=== PATIENT | female | born 1985 | race Caucasian/White ===

== ENCOUNTER → 2019-12-21 13:50 | Outpatient (BNVA) | payer MEDICAID, SELFPAY | PROVIDERS: Family Provider Nurse Practitioner; PCP Nurse Practitioner; Visit Provider Nurse Practitioner Women's Health | DX: O09.899 Supervision of other high risk pregnancies, unspecified trimester (principal); Z3A.00 Weeks of gestation of pregnancy not specified | CPT/HCPCS: 80053; 80307; 84315; 85027; 86592; 86762; 86803; 86850; 86900; 87340; 87806 ==

== ENCOUNTER → 2020-01-10 14:39 | Outpatient (BNVA) | payer MEDICAID, SELFPAY | PROVIDERS: Family Provider Nurse Practitioner; PCP Nurse Practitioner; Visit Provider Obstetrics & Gynecology | DX: O09.899 Supervision of other high risk pregnancies, unspecified trimester (principal); Z12.4 Encounter for screening for malignant neoplasm of cervix; Z86.718 Personal history of other venous thrombosis and embolism; Z3A.00 Weeks of gestation of pregnancy not specified | CPT/HCPCS: 81000; 81241; 85210; 85300; 87491; 87591; 88175 ==

== ENCOUNTER → 2020-02-16 08:06 | Outpatient (BNVA) | payer MEDICAID, SELFPAY | PROVIDERS: Family Provider Nurse Practitioner; PCP Nurse Practitioner; Visit Provider Obstetrics & Gynecology | DX: Z34.92 Encounter for supervision of normal pregnancy, unspecified, second trimester (principal); Z3A.19 19 weeks gestation of pregnancy | CPT/HCPCS: 76805 ==

== ENCOUNTER → 2020-04-12 10:07 | Outpatient (BNVA) | payer MEDICAID, SELFPAY | PROVIDERS: Family Provider Nurse Practitioner; PCP Nurse Practitioner; Visit Provider Obstetrics & Gynecology | DX: O09.899 Supervision of other high risk pregnancies, unspecified trimester (principal); Z3A.00 Weeks of gestation of pregnancy not specified | CPT/HCPCS: 82950; 84315; 85027 ==

== ENCOUNTER → 2020-06-10 08:20 | Outpatient (BNVA) | payer MEDICAID, SELFPAY | PROVIDERS: Family Provider Nurse Practitioner; PCP Nurse Practitioner; Visit Provider Obstetrics & Gynecology | DX: O09.899 Supervision of other high risk pregnancies, unspecified trimester (principal); Z86.718 Personal history of other venous thrombosis and embolism; Z3A.00 Weeks of gestation of pregnancy not specified | CPT/HCPCS: 84315; 87081 ==

== ENCOUNTER 2020-06-24 14:19 | Inpatient (IN) | payer MEDICAID, SELFPAY ==
[2020-06-24] VITALS (98 sets, daily range): BP systolic 98–139; BP diastolic 55–88; PULSE 102–150; RESP 18; TEMP 36.8; O2SAT 93–100; BMI 32.4
[2020-06-24] MEDS: lactated ringers 1,000 ML 999 ML IV ×2 (15:32→19:54)
[2020-06-24 15:43] LABS: Basophils % 0.3 %; Eosinophils # 0.1 10^3/uL (0.0-0.8); Eosinophils % 1.5 %; Hematocrit 35.7 % (37.0-47.0); Lymphocytes # 1.8 10^3/uL (0.8-4.8); Lymphocytes % 19.5 %; Mean Corpuscular HGB Conc 33.6 g/dL (30.0-36.0); Mean Corpuscular Hemoglobin 31.1 pg (28.0-34.0); Mean Corpuscular Volume 92.5 fL (81-99); Mean Platelet Volume 12.5 fL (7.4-10.4); Monocytes # 0.5 10^3/uL (0.2-0.9); Monocytes % 5.6 %; Neutrophils # 6.75 10^3/uL (1.8-7.7); Neutrophils % 72.8 %; Nucleated Red Blood Cells % 0 %; Platelet Count 192 10^3/cmm (130-400); Red Blood Count 3.86 10^6/uL (4.1-5.3); White Blood Count 9.3 10^3/uL (4.0-10.0)
--- NOTE | 2020-06-24 18:57 | P.PN_ITS ---
Subjective Subjective: Interval history: Subjective- Ms. Martinez is a 35-year-old 3 para 2-0-0-2 at 38 weeks and 3 days who was sent to labor and delivery from a routine office visit. She was saw Dr. Nails for scheduled obstetrical visit and Doptone showed heart rate to be in the 70s. She was sent over immediately for further evaluation and possible delivery. History was significant for ovarian cancer requiring an exlaparotomy with right salpingo-oophorectomy and history of a DVT in 2014 for which she is taking Lovenox as well as 2 previous C-sections. She does not want to be anymore and desired total salpingectomy for sterilization. -She states that she is feeling fine and is no longer anxious and just wants to make sure baby is fine. She has questions about . She did receive a dose of 40 mg of Lovenox this morning subcutaneously as she has been unable to fill her heparin prescription and so was continued herself on Lovenox. Has not had Covid testing done as yet. Objective- Blood pressure-104/64 mmHg Pulse-110 beats per minute Temperature-98.2 Fahrenheit O2 saturation-97 on room air Abdomen-gravid, nontender, well-healed scar from previous /laparotomy noted Sterile vaginal exam-closed thick and high EFM-135, moderate variability, accelerations present, 1 late deceleration in 2- 1/2 hours after contraction Broughton-irritability with only 1 contraction every hour or so Assessment: 35-year-old 3 para 2-0-0-2 at 38 weeks and 3 days -Category 2 tracing that has recovered and is now category 1 -History of DVT currently on Lovenox Previous delivery x2 desiring repeat Multiparity desiring sterilization with total salpingectomy--Medicaid consent signed on 04/12/2020 Plan: Discussed with Ms. Martinez and her partner that although tracing is category 1 whenever she has an occasional contraction and is followed by deceleration. Given this I would recommend delivery. -Since it is overall a category 1 tracing and since she has received Lovenox recently I would like to hold off on surgery if possible till morning-24 hours after her last dose of Lovenox. This way we can try to ensure regional anesthesia and decrease the risk of bleeding. She understands that if anything changes overnight she may need to have surgery beforehand. -Since she has not had Covid testing we will do this today however it is unlikely to be back before tomorrow and so surgery will have to be done in the main OR-Main OR -[facility] notified -Patient understand that Dr. Armstrong will be doing the surgery and we will plan for repeat total salpingectomy for sterilization-consents were signed today-06/24/2020 -Continuous EFM and tocometry overnight and she understands that if tracing gets any worse we will need to perform surgery overnight. -As long as tracing remains category 1 patient can have ice chips but otherwise n.p.o. after midnight Vitals/I&O/Wt Last Vital Signs Temp 98.2 F 06/24/20 14:45 Pulse 120 H 06/24/20 18:47 Resp 18 06/24/20 14:45 BP 104/64 06/24/20 18:47 Pulse Ox 97 06/24/20 15:26 Weight last 48 hrs Weight 183 lb Data : 06/24/20 15:00 Attestations Medical Necessity Statement*: Patient will need to stay to at least 2-3 midn [facility] for surgery and associated recovery Coding Level of Care Code Acute Pet Care Attendant for Chg Adrienne
[2020-06-24] MEDS: terbutaline 1 mg/mL INJ 0.25 MG SUBCUT (19:53)
[2020-06-25] VITALS (104 sets, daily range): BP systolic 91–129; BP diastolic 52–80; PULSE 83–121; RESP 15–18; TEMP 36.4–37.3; O2SAT 94–100
[2020-06-25] MEDS: lactated ringers 1,000 ML 125 ML IV (00:36)
[2020-06-25] MEDS: lactated ringers 1,000 ML 999 ML IV (05:45)
--- NOTE | 2020-06-25 06:08 | PC.NURSE ---
OR paradichlorobenzene tender at nurses station, report given and bleed medication box given to OR paradichlorobenzene tender BRANDON Manzo.
[2020-06-25] MEDS: metoclopramide 5 mg/mL SDV 2 mL 10 MG IVP (06:16)
[2020-06-25] MEDS: famotidine 20 mg/2 mL INJ IVP (06:16)
[2020-06-25] MEDS: citric acid-sodium citrate 30 mL UDC PO (06:17)
--- NOTE | 2020-06-25 06:24 | P.ANESASSM_ITS ---
Pre-Anesthetic Assessment Pre-Anesthetic Assessment: Height/Weight: Height 1.6 m Weight 83.007 kg Temp Pulse Resp BP Pulse Ox 98.2 F 109 H 18 117/75 99 06/24/20 14:45 06/25/20 06:10 06/24/20 14:45 06/25/20 06:10 06/25/20 06:00 Proposed Procedure: Operation Date: 06/25/20 07:00 Proposed Procedures p Section(Not Applicable) - Lesli Ignacio MD Was Beta Jennifer taken within 24 hours: N/A Last intake: Intake Last Liquid Date 06/24/20 Last Liquid Time 20:30 Last Solid Date 06/24/20 Last Solid Time 11:00 Social: Social History: No alcohol and No tobacco Exam: Pre-Anes Outpt Exam: alert, oriented x 3, clear to auscultation bilaterally and regular rate & rhythm Airway: Submandibular: WNL Cervical ROM: WNL MP: 2 Dentition: Full CV/HEM: CV/HEM: DVT (last dose lovenox >12hrs) Anesthetic Plan: ASA status: 2 Other: SAB Risk of > 500 ml blood loss (7ml/kg in children): Yes, adequate IV access and fluids planned Meds/Allergies Current Medications: Current Medications Generic Name Dose Route Start Last Admin Trade Name Freq PRN Reason Stop Dose Admin Lactated Ringer's 1,000 mls @ 125 m ls/hr 06/24/20 18:30 06/25/20 05:38 Lactated Ringers IV Not Given .Q8H STIVEN Lactated Ringer's 1,000 mls @ 125 m ls/hr 06/24/20 18:45 06/25/20 05:38 Lactated Ringers IV Not Given .Q8H STIVEN PFSH Anesthesia PFSH: Medical History H/O ovarian cancer (~2003) Had RSO with cancer identified. Treated surgically, followed by radiation and chemotherapy. History of DVT (deep vein thrombosis) (~2014) Left leg. States was told was due to her control Surgical History Hx of removal of ovary (~2003) Laparotomy with RSO for cancer. Performed by Dr. Anguiano in [place], S/P primary low transverse (01/16/10) Performed by Dr. Nails at [facility] in [place], [place] S/P repeat low transverse (05/26/11) Performed by Dr. Nails at [facility] in [place], [place] Family History Mother Family history of thyroid problem Hypertension Social History Smoking and tobacco status: never smoked Alcohol intake: never Additional social history: - Tobacco use: Denies Alcohol use: Denies Drug use: Denies Female Reproductive History: : 3 Data Anesthesia CBC & Chem 7: 06/24/20 15:00 Other Labs: Laboratory Results - last 48 hr 06/24/20 06/24/20 15:00 15:00 WBC 9.3 RBC 3.86 L Hgb 12.0 Hct 35.7 L MCV 92.5 MCH 31.1 MCHC 33.6 RDW 14.0 Plt Count 192 MPV 12.5 H Neut % (Auto) 72.8 Lymph % (Auto) 19.5 Conway % (Auto) 5.6 Eos % (Auto) 1.5 Baso % (Auto) 0.3 Neut # (Auto) 6.75 Lymph # (Auto) 1.8 Conway # (Auto) 0.5 Eos # (Auto) 0.1 Baso # (Auto) 0.0 Nucleated RBC % (auto) 0 Nucleated RBCs # 0.0 Blood Type O Positive Rho(D) Type Positive Antibody Screen Negative Crossmatch See Detail Cardiac Studies: No Data to Display
--- NOTE | 2020-06-25 06:35 | W.PM.OPSUD ---
Surgery/Procedure H&P Update DATE OF PROCEDURE: June 25, 2020 DATE H&P PERFORMED: 06/24/20 H&P UPDATE INFORMATION: I have reviewed H&P completed within last 30 days, I have examined patient prior to procedure and No changes to prior documentation PREOP DIAGNOSIS: previous times 2 PRIMARY INDICATION FOR PROCEDURE: repeat with tubal ligation PLANNED PROCEDURE: Operation Date: 06/25/20 07:00 Proposed Procedures p Section(Not Applicable) - Lesli Ignacio MD
--- NOTE | 2020-06-25 07:57 | P.OP_ITS ---
Operative Report Date of procedure: June 25, 2020 Pre-op Diagnosis: previous times 2 Post-op diagnosis: same Procedure Done: repeat with left partial salpingectomy Specimens removed/disposition: parial fallopian tube Pathology: other Pathology: fallopian tube segment Surgeon: Chela Armstrong Personal Support Worker: Lesli Ignacio Anesthesia: Other (spinal) Estimated blood loss (mL): 300 IV fluids (mL): 1,500 Urine output (mL): 150 Complications: none Findings: term male in cephalic presentation. Normal uterus. absent right tube and ovary. Adhesion of left fallopian tube to adnexae Condition: stable Disposition: PACU Procedure: Patient was taken to the operating room where spinal anesthesia was administered and found to be adequate. She was prepped and draped in the normal sterile fashion in the in the supine position with a leftward tilt. A Barrios catheter was placed. An incision was made over the previous vertical incision and carried down to the underlying layer of fascia. The fascia was nicked in the midline and extended superiorly and inferiorly. The peritoneum was entered bluntly with the digit. This incision was extended superiorly and inferiorly. The Xavier O retractor was placed. A bladder flap was created. A low transverse incision was made uterus. This incision was extended superiorly and inferiorly. The bag of water emerged from the incision. This was ruptured with an Allis clamp. The head was grasped and brought through the incision. The nose and mouth were bulb suctioned. The remainder of the baby delivered atraumatically. The cord was clamped and cut and the baby was brought to the warmer. Apgars 8 at 1 minute 9 at 5 minutes. Weight on baby 6 pounds 0 ounces. The placenta was delivered by expression. It was intact. The uterine incision was closed with 0 Vicryl in a running fashion. A second imbricating layer was closed with 2-0 Monocryl in a running locked fashion. The bladder flap was closed with 2-0 Monocryl in a running fashion. Attention was turned to the tubal ligation portion. Using the LigaSure the tube was removed partially by cauterizing the broad ligament. I then came across the tube just superior to the fimbria. Embryo was unable to be removed due to a large adhesion to the pelvis that was so deep I was unable to remove it. there was excellent hemostasis. The peritoneal incision was closed with 2-0 Monocryl in a running fashion. The fascia was closed with 0 Vicryl incorporating the muscle in a running fashion. The skin was closed with 3-O strata fix. The patient tolerated the procedure well. Sponge lap and needle counts were correct x3. She was taken to the recovery room in stable condition.
--- NOTE | 2020-06-25 08:43 | ANE.PACU2 ---
Inpatient post-anesthesia follow up: Airway intact: Yes Vital signs: Temperature 97.6 F Pulse Rate 88 Respiratory Rate 17 Blood Pressure 111/77 Pulse Oximetry 98 Oxygen Delivery Me thod Room Air Oxygen Flow Rate Fraction of Inspir ed Oxygen Hydration adequate: Yes Nausea and vomiting: No Pain level: 2 Mental status: Baseline
[2020-06-25] MEDS: ketorolac 30 mg/mL INJ IVP ×3 (09:30→19:37)
[2020-06-25] MEDS: dextrose 5%-lactated ringers 1,000 ML 125 ML IV (11:59)
[2020-06-25 16:21] LABS: Coronavirus Test Green County Not Detected
[2020-06-25] MEDS: ferrous sulfate EC 325 mg Tablet PO (17:29)
[2020-06-25] MEDS: lanolin oint 7 gm 1 APPLIC TOPICAL (17:29)
[2020-06-25] MEDS: docusate sodium 100 mg Capsule PO (17:29)
[2020-06-25 20:01] LABS: Hematocrit 31.4 % (37.0-47.0); Hemoglobin 10.4 g/dL (11.5-15.3); Mean Corpuscular HGB Conc 33.1 g/dL (30.0-36.0); Mean Corpuscular Volume 93.5 fL (81-99); Mean Platelet Volume 12.1 fL (7.4-10.4); Platelet Count 166 10^3/cmm (130-400); Red Blood Count 3.36 10^6/uL (4.1-5.3); Red Cell Distribution Width 14.2 % (12.1-15.1)
[2020-06-25] MEDS: enoxaparin 40 mg/0.4 mL Syringe SUBCUT (21:08)
[2020-06-26 02:14] VITALS: BP 98/64; PULSE 104; RESP 16; TEMP 36.8
[2020-06-26 05:20] VITALS: BP 105/71; PULSE 104; RESP 16; TEMP 36.7
[2020-06-26 08:00] VITALS: BP 115/75; PULSE 104; RESP 18; TEMP 37.1
--- NOTE | 2020-06-26 09:01 | P.PN_ITS ---
Vitals/I&O/Wt Last Vital Signs Temp 98.7 F 06/26/20 08:00 Pulse 104 H 06/26/20 08:00 Resp 18 06/26/20 08:00 BP 115/75 06/26/20 08:00 Pulse Ox 97 06/25/20 22:00 06/25/20 06/26/20 06/26/20 22:59 06:59 14:59 Intake Total 1000 / 3022.917 Output Total 200 / 1600 600 / 2200 Balance -200 / 422.917 400 / 822.917 Weight last 48 hrs Weight 183 lb Physical Exam Narrative: EXAM NARRATIVE: The patient is doing very well this AM. She has been ambulating. She is tolerating a regular diet. Her catheter has been removed and she is able to urinate. Pain is well controlled. Lovenox was restarted last night. Const: COMMON NORMALS: no acute distress, average body habitus, patient oriented x3, no limitations, healthy appearing, alert and well nourished GENERAL APPEARANCE: cooperative, comfortable, well kempt and well developed ORIENTATION/CONSCIOUSNESS: Yes awake, Yes oriented to person, Yes oriented to place and Yes oriented to time Resp: COMMON NORMALS: normal respiratory effort and No retractions EFFORT & INSPECTION: Yes able to speak in complete sentences Extremity: COMMON NORMALS: no calf tenderness and no pedal edema (pedal edema present) Neuro: COMMON NORMALS: patient oriented x3 SENSORIUM/ORIENTATION: Yes alert, Yes oriented to person, Yes oriented to place and Yes oriented to time Psych: APPEARANCE: Yes well kempt Urinary Catheter Management^: Barrios: Cath Placed During This Visit: yes Reason for Continuing Indwelling Catheter: Perioperative Use in Selected Surgeries Urinary Catheter Date of Insertion: 06/25/20 Urinary Catheter Time of Insertion: 06:50 Data : 06/25/20 19:50 A&P Assessment and plan (1) Post-operative state: doing well this am Status: Acute Attestations Medical Necessity Statement*: POD #1 after Coding Level of Care Code Acute Technology Instructor for Lucia Deleon Diagnoses Post-operative state Z98.890
[2020-06-26] MEDS: docusate sodium 100 mg Capsule PO ×2 (10:03→17:57)
[2020-06-26] MEDS: prenatal vitamin Capsule 1 CAP PO (10:03)
[2020-06-26] MEDS: ibuprofen 800 mg tablet PO ×3 (10:03→21:11)
[2020-06-26 14:36] VITALS: BP 110/68; PULSE 94; RESP 18; TEMP 36.8; O2SAT 97
[2020-06-26] MEDS: enoxaparin 40 mg/0.4 mL Syringe SUBCUT (21:11)
[2020-06-26 21:58] VITALS: BP 109/76; PULSE 108; RESP 14; TEMP 36.9
[2020-06-27 04:29] VITALS: BP 106/56; PULSE 100; RESP 16; TEMP 36.7
--- NOTE | 2020-06-27 08:19 | P.DS_ITS ---
Discharge Providers Date of Admission: 06/24/20 18:30 Date of Discharge: June 27, 2020 Attending Provider at Admission: Lesli Ignacio MD Attending Provider at Discharge: Chela Armstrong MD Primary Care Provider: JANICE Cho Diagnoses at Discharge Discharge Diagnosis (1) Post-operative state: Status: Acute Reason for Visit Reason for Visit: CONTRACTIONS Hospital Course Hospital Course POD #2 The patient is doing well today. No complaints or concerns. ambulating well. tolerating a regular diet. Urinating without pain. Normal lochia. Hospital course: The patient was admitted due to decelerations during NST. The decelerations were with contractions. She had taken her lovenox and needed a repeat due to two previous . She was observed overnight and performed in the AM. She also had a left partial salpingectomy, per patient request. She did well postoperatively. She was started back on her lovenox 12 hours post op. She was ready for discharge on day #2 Physical Exam Urinary Catheter Management^: Barrios: Cath Placed During This Visit: yes, but has since been removed by the nurse Reason for Continuing Indwelling Catheter: Decision to DC Catheter Urinary Catheter Date of Insertion: 06/25/20 Urinary Catheter Time of Insertion: 06:50 Date Urinary Catheter Removed: 06/26/20 Time Urinary Catheter Discontinued: 08:00 Discharge Data Data Completed and Pending: Completed Studies During Hospitalization Category Date Time Status Pathology: Surgic al [PTH] Routine Pth 06/25/20 08:11 Completed Pending at discharge Category Date Time Status PACKED CELLS [Nolvia kocyte Reduced RBC ] Routine Lab 06/24/20 15:00 Results Type and Screen R outine Lab 06/24/20 15:00 Results Vitals: Last Vital Signs Temp 98.1 F 06/27/20 04:29 Pulse 100 06/27/20 04:29 Resp 16 06/27/20 04:29 BP 106/56 06/27/20 04:29 Pulse Ox 97 06/26/20 14:36 Discharge Plan Discharge Patient Disposition: Home Condition: Stable Prescriptions: New hydrocodone-acetaminophen 5-325 mg Tablet 1 - 2 tab PO Q4H PRN (Reason: Moderate To Severe Pain) Qty: 26 RF: 0 Continued prenat.vits,kris,[id number] Tablet 1 tab PO DAILY RF: 0 enoxaparin [Lovenox] 40 mg/0.4 mL syringe 40 mg SUBCUT Q24H Qty: 12 RF: 0 Discontinued heparin (porcine) 10,000 unit/mL solution 10,000 unit SUBCUT Q12H Qty: 16 RF: 0 Discharge Orders: Discharge Order (Routine); Ordered 06/27/20 Ordered By: Chela Armstrong Referrals: Chela Armstrong MD [Physician] - 07/08/20 8:00 am (*Your two week incision check with Dr. Armstrong is on 07/08/2020 at 8:00 a.m. *Your [address] Hillman is on 08/12/2020 at 9:00 a.m.) Patient Instructions: Pre-eclampsia and Eclampsia (DC), Bleeding (DC), OB WHC, OB Discharge Report, OB Food/Drug Interaction Guide, OB Home Care, OB Proud Parent Packet Discharge Attestations Time Spent in Discharge Care*: less than 30 min Quality Metrics Clinical Quality Measures During this hospital stay, did patient experience: None Coding Level of Care Code Acute Chemistry Technologist for Chg Fwd Diagnoses Post-operative state Z98.890
[2020-06-27] MEDS: prenatal vitamin Capsule 1 CAP PO (09:11)
[2020-06-27] MEDS: ibuprofen 800 mg tablet PO (09:11)
[2020-06-27] MEDS: docusate sodium 100 mg Capsule PO (09:11)
[2020-06-27 09:17] VITALS: BP 116/81; PULSE 100; RESP 16; TEMP 36.6; O2SAT 98
[2020-06-27 10:20] VITALS: BP 116/81; PULSE 100; RESP 16; TEMP 36.6; O2SAT 98
--- NOTE | 2020-06-27 13:04 | PC.NURSE ---
Request from [facility] Pharmacist to put max of 9 pills /day on the prescription. Dr. Armstrong gave an instructions to allow this. Pharmacy was notified.
== END 2020-06-27 10:35 | disposition home or self-care (01) | DRG 788 ==
PROVIDERS: Obstetrics & Gynecology; Admitting Provider Obstetrics & Gynecology; Family Provider Nurse Practitioner; PCP Nurse Practitioner; Visit Provider Obstetrics & Gynecology
PROC: (CPT 59514; principal; 2020-06-25 07:00)
DX: O34.211 Maternal care for low transverse scar from previous cesarean delivery (principal); Z3A.38 38 weeks gestation of pregnancy; Z37.0 Single live birth; Z85.43 Personal history of malignant neoplasm of ovary; Z86.718 Personal history of other venous thrombosis and embolism; Z92.3 Personal history of irradiation; Z92.21 Personal history of antineoplastic chemotherapy; O76 Abnormality in fetal heart rate and rhythm complicating labor and delivery; Z90.721 Acquired absence of ovaries, unilateral
CPT/HCPCS: 36415; 51702; 59409; 84315; 85025; 85027; 86850; 86900; 86920; 87635; 88302; 96372; 99211; G0378; G0379; J0690; J1650; J1885; J2250; J2274; J2370; J2405; J2765; J3105; J3490